=== PATIENT | male | born 1995 | race Hispanic/Latino ===

== ENCOUNTER 2024-01-25 16:12 | Emergency (ER) | payer OTHER, SELFPAY ==
[2024-01-25 16:20] VITALS: BP 104/77; PULSE 108; RESP 20; TEMP 36.4; O2SAT 98
[2024-01-25 17:30] VITALS: PULSE 80; RESP 16; TEMP 36.6; O2SAT 98
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
[2024-01-25 18:21] VITALS: BP 130/76; PULSE 80; RESP 16; TEMP 36.6; O2SAT 98
== END 2024-01-25 18:24 | disposition home or self-care (01) ==
PROVIDERS: Emergency Provider Physician Assistant
DX: T24.092A Burn of unspecified degree of multiple sites of left lower limb, except ankle and foot, initial encounter (principal); T23.052A Burn of unspecified degree of left palm, initial encounter; T23.051A Burn of unspecified degree of right palm, initial encounter; T20.07XA Burn of unspecified degree of neck, initial encounter; X04.XXXA Exposure to ignition of highly flammable material, initial encounter
CPT/HCPCS: 99283